=== PATIENT | female | born 1930 | race Caucasian/White ===

== ENCOUNTER 2019-06-01 20:09 | Inpatient (IN) | payer MEDICARE, MEDICAID ==
[~2019-06-01] VITALS: Ht 152.4 cm; Wt 71.4 kg
[2019-06-01] MEDS ORDERED: normal saline 1000ml 1,000 ML IV ONE ×2 (20:35→21:00)
[2019-06-01] MEDS ORDERED: pantoprazole 40 MG vial IV ONE (20:35)
[2019-06-01] MEDS ORDERED: ondansetron/PF 4mg/2ml inj IV ONE (20:40)
[2019-06-01 20:46] LABS: BASOPHILS # (AUTO) 0.1 X10'3 (0-0.2); BASOPHILS % (AUTO) 0.6 % (0-1); EOSINOPHILS # (AUTO) 0.5 X10'3 (0-0.9); EOSINOPHILS % (AUTO) 5.6 % (0-6); HEMATOCRIT 25.4 % (35.0-45.0); HEMOGLOBIN 8.6 g/dl (12.0-16.0); LYMPHOCYTES # (AUTO) 2.1 X10'3 (1.1-4.8); LYMPHOCYTES % (AUTO) 22.3 % (21-51); MEAN CORPUSCULAR HEMOGLOBIN 33.3 PG (27.0-31.0); MONOCYTES # (AUTO) 0.8 X10'3 (0-0.9); MONOCYTES % (AUTO) 8.2 % (2-12); NEUTROPHILS # (AUTO) 5.9 X10'3 (1.8-7.7); NEUTROPHILS % (AUTO) 63.3 % (42-75); PLATELET COUNT 155 X10'3 (140-440); RED BLOOD COUNT 2.59 X10'6 (4.20-5.60); RED CELL DISTRIBUTION WIDTH 16.6 % (11.5-14.5); WHITE BLOOD COUNT 9.4 X10'3 (4.5-11.0)
[2019-06-01 20:51] LABS: ALANINE AMINOTRANSFERASE 17 U/L (12-78); ALBUMIN 3.1 G/DL (3.4-5.0); ALBUMIN/GLOBULIN RATIO 0.9 (1.1-1.5); ALKALINE PHOSPHATASE 77 IU/L (46-116); ANION GAP 7 (8-16); ASPARTATE AMINO TRANSFERASE 18 U/L (10-37); BILIRUBIN,TOTAL 0.2 MG/DL (0.1-1.0); BLOOD UREA NITROGEN 107 MG/DL (7-18); BUN/CREATININE RATIO 40.2 (6.6-38.0); CALCIUM 8.7 MG/DL (8.5-10.1); CHLORIDE 104 MMOL/L (99-107); CREATININE 2.66 MG/DL (0.40-0.90); GLUCOSE 129 MG/DL (70-104); SODIUM 135 MMOL/L (135-145); TOTAL CARBON DIOXIDE 23.8 MMOL/L (24-32); TOTAL PROTEIN 6.7 G/DL (6.4-8.2); eGFR 17 ML/MIN
[2019-06-01 20:53] LABS: POTASSIUM 6.3 MMOL/L (3.5-5.1)
[2019-06-01 20:56] LABS: PARTIAL THROMBOPLASTIN TIME 24 SECONDS (22-32)
[2019-06-01] MEDS: pantoprazole 40MG/NS 100ML BAG 100 ML IV SCH ×2 (21:00→21:02)
[2019-06-01 21:05] LABS: LARGE PLATELETS MODERATE; PLATELET ESTIMATE NORMAL
[2019-06-01] MEDS ORDERED: calcium chloride inj. 1,000 MG in normal saline 100ml IV soln 90 ML IV ONE (21:05)
[2019-06-01 21:36] LABS: CLARITY,URINE CLEAR (Clear); COLOR,URINE YELLOW (Yellow); GLUCOSE, URINE NEGATIVE (Neg); KETONES,URINE NEGATIVE (Neg); LEUKOCYTE ESTERASE ,URINE SMALL (Neg); NITRITES, URINE NEGATIVE (Neg); OCCULT BLOOD,URINE NEGATIVE (Neg); PH,URINE 5.5 (4.8-8.0); PROTEIN,URINE NEGATIVE (Neg); UA COLLECTION TYPE CLN CATCH MIDSTREAM; UROBILINOGEN,URINE 0.2 E.U/dL (0.2-1.0)
[2019-06-01 21:47] LABS: RBC,URINE NONE SEEN /HPF (0-2); WBC,URINE 0-4 /HPF (0-4)
[2019-06-01 21:48] LABS: BACTERIA,URINE FEW /HPF (Neg); SQUAMOUS EPITHELIAL CELL,UR FEW /LPF (FEW); TRANSITIONAL EPI CELLS,URINE FEW /HPF
--- NOTE | 2019-06-01 21:53 | NUR ---
FAMILY AT BEDSIDE. PT ALERT AND ORIENTED AND COOPERATIVE WITH CARE. SECOND IV ESTABLISHED DUE TO PROTONIX AND CALCIUM NOT BEING COMPATABLE
[2019-06-01] MEDS ORDERED: ondansetron/PF 4mg/2ml inj IV PRN (23:30)
[2019-06-01] MEDS ORDERED: acetaminophen 325mg tablet PO PRN ×2 (23:30)
[2019-06-01] MEDS ORDERED: mag hydrox/Alum hydrox/simeth 30ml oral suspension PO PRN (23:30)
[2019-06-01] MEDS ORDERED: sodium polystyrene sulfonate 15gm/60ml oral suspension PO ONE (23:30)
[2019-06-01] MEDS ORDERED: HYDROcodone/acetaminophen 5mg/325mg tablet PO PRN (23:30)
[2019-06-01] MEDS ORDERED: magnesium hydroxide 30ml (MOM) UD suspension PO PRN (23:30)
[2019-06-02] VITALS (23 sets, daily range): BP systolic 102–198; BP diastolic 46–88
[2019-06-02] MEDS: normal saline 1000ml 1,000 ML IV SCH ×3 (00:19→15:53)
--- NOTE | 2019-06-02 00:21 | NUR ---
Recieved patient report from BOLIVAR Moeller. Patient arrived on unit at approximately 0015 via [facility]. Patient 2 RN skin check complete, medication hung per MD order. MRSA swab collected, vital signs taken patient is in stable condition.
[2019-06-02] MEDS: pantoprazole 40MG/NS 100ML BAG 100 ML IV SCH ×5 (01:36→21:49)
[2019-06-02 05:17] LABS: BASOPHILS % (AUTO) 0.7 % (0-1); EOSINOPHILS # (AUTO) 0.3 X10'3 (0-0.9); EOSINOPHILS % (AUTO) 4.5 % (0-6); LYMPHOCYTES # (AUTO) 1.7 X10'3 (1.1-4.8); LYMPHOCYTES % (AUTO) 25.3 % (21-51); MEAN CORPUSCULAR HGB CONC 33.6 g/dL (33.0-36.5); MEAN CORPUSCULAR VOLUME 98.2 FL (78-98); MEAN PLATELET VOLUME 11.1 FL (7.4-10.4); MONOCYTES # (AUTO) 0.6 X10'3 (0-0.9); MONOCYTES % (AUTO) 9.1 % (2-12); NEUTROPHILS # (AUTO) 3.9 X10'3 (1.8-7.7); NEUTROPHILS % (AUTO) 60.4 % (42-75); PLATELET COUNT 128 X10'3 (140-440); RED BLOOD COUNT 2.08 X10'6 (4.20-5.60); RED CELL DISTRIBUTION WIDTH 16.7 % (11.5-14.5); WHITE BLOOD COUNT 6.5 X10'3 (4.5-11.0)
[2019-06-02 05:28] LABS: HEMATOCRIT 20.5 % (35.0-45.0); HEMOGLOBIN 6.9 g/dl (12.0-16.0)
[2019-06-02 05:35] LABS: ALBUMIN 2.7 G/DL (3.4-5.0); ANION GAP 12 (8-16); BLOOD UREA NITROGEN 105 MG/DL (7-18); BUN/CREATININE RATIO 45.3 (6.6-38.0); CHLORIDE 113 MMOL/L (99-107); CREATININE 2.32 MG/DL (0.40-0.90); GLUCOSE 92 MG/DL (70-104); POTASSIUM 5.4 MMOL/L (3.5-5.1); SODIUM 146 MMOL/L (135-145); TOTAL CARBON DIOXIDE 21.2 MMOL/L (24-32); eGFR 20 ML/MIN
--- NOTE | 2019-06-02 05:58 | NUR ---
Patient has a critical value for Hgb= 6.9 and Hct= 20.5. Rishabh Fernandez MD called and he has ordered 1 unit of PRBC's.
--- NOTE | 2019-06-02 06:32 | NUR ---
Problems reprioritized. Patient report given, questions answered & plan of care reviewed with BOLIVAR Vance.
[2019-06-02 07:15] LABS: LARGE PLATELETS FEW; PLATELET ESTIMATE DECREASED
[2019-06-02] MEDS ORDERED: LISI40TA4 PO (07:38)
[2019-06-02] MEDS ORDERED: CARV25TA2 PO (07:38)
[2019-06-02] MEDS ORDERED: FURO40TA4 PO (07:38)
[2019-06-02] MEDS ORDERED: NIFE30TA95 PO (07:38)
[2019-06-02] MEDS ORDERED: FLU VACC QS2019-20 36MOS UP/PF 60 MCG/0.5 ML SYRINGE IMVAC ONE (10:00)
[2019-06-02 11:35] LABS: HEMATOCRIT 26.8 % (35.0-45.0); HEMOGLOBIN 9.1 g/dl (12.0-16.0); MEAN CORPUSCULAR HEMOGLOBIN 32.3 PG (27.0-31.0); MEAN CORPUSCULAR HGB CONC 33.9 g/dL (33.0-36.5); MEAN CORPUSCULAR VOLUME 95.2 FL (78-98); MEAN PLATELET VOLUME 10.9 FL (7.4-10.4); PLATELET COUNT 123 X10'3 (140-440); RED BLOOD COUNT 2.81 X10'6 (4.20-5.60); RED CELL DISTRIBUTION WIDTH 17.7 % (11.5-14.5); WHITE BLOOD COUNT 7.2 X10'3 (4.5-11.0)
--- NOTE | 2019-06-02 12:17 | NUR ---
Dr. Burr notified recent hemogram results. New order for hemogram q8 hours. PAGER ID: [phone] MESSAGE: [phone] [id number] Chana Jim: FYI- Hgb 9.1 Hct 26.8. Will repeat Q8 hours to monitor. Thanks, Pinky [id number]
[2019-06-02] MEDS ORDERED: fentaNYL/PF 50MCG/1 ML 2ML syringe ONE (14:23)
[2019-06-02] MEDS ORDERED: MIDAZolam 5mg/5ml vial ONE (14:23)
[2019-06-02] MEDS ORDERED: LIDOcaine Viscous 15ml cup ONE (14:24)
[2019-06-02] MEDS ORDERED: epiNEPHrine 0.1mg/ml 10ml syringe ONE (14:42)
--- NOTE | 2019-06-02 18:31 | NUR ---
Problems reprioritized. Patient report given, questions answered & plan of care reviewed with BOLIVAR Ruiz.
[2019-06-02] MEDS: carVEDilol 12.5mg tablet PO SCH (19:05)
[2019-06-02 19:28] LABS: HEMATOCRIT 24.1 % (35.0-45.0); HEMOGLOBIN 8.2 g/dl (12.0-16.0); MEAN CORPUSCULAR HEMOGLOBIN 32.5 PG (27.0-31.0); MEAN CORPUSCULAR HGB CONC 34.1 g/dL (33.0-36.5); MEAN CORPUSCULAR VOLUME 95.3 FL (78-98); MEAN PLATELET VOLUME 10.7 FL (7.4-10.4); PLATELET COUNT 111 X10'3 (140-440); RED BLOOD COUNT 2.53 X10'6 (4.20-5.60); RED CELL DISTRIBUTION WIDTH 18.2 % (11.5-14.5); WHITE BLOOD COUNT 7.6 X10'3 (4.5-11.0)
--- NOTE | 2019-06-02 23:00 | NUR ---
Sent to [facility]: MESSAGE: [id number] Chana Porter 89 F: Pt is on NS @ 100 NA increased from 135-146 Cl 104-113 Pressure before coreg was 177/72 BP after was 150/54. Would you like to decrease fluids? Thank you, Sara [phone]
--- NOTE | 2019-06-02 23:13 | NUR ---
Dr. Colbert DC'd fluid orders for this patient at this time.
--- NOTE | 2019-06-02 23:14 | NUR ---
Problems reprioritized. Patient report given, questions answered & plan of care reviewed with BOLIVAR Best.
--- NOTE | 2019-06-03 00:20 | NUR ---
Patient in room PCU 3024. I have received report from Sara LUTZ and had the opportunity to ask questions and assume patient care.
[2019-06-03] MEDS: pantoprazole 40MG/NS 100ML BAG 100 ML IV SCH ×5 (01:40→22:29)
[2019-06-03 02:00] VITALS: BP 144/53
[2019-06-03 03:29] LABS: ALBUMIN 2.5 G/DL (3.4-5.0); ANION GAP 9 (8-16); BASOPHILS % (AUTO) 0.5 % (0-1); BLOOD UREA NITROGEN 70 MG/DL (7-18); BUN/CREATININE RATIO 36.6 (6.6-38.0); CALCIUM 8.7 MG/DL (8.5-10.1); CHLORIDE 116 MMOL/L (99-107); CREATININE 1.91 MG/DL (0.40-0.90); EOSINOPHILS # (AUTO) 0.3 X10'3 (0-0.9); EOSINOPHILS % (AUTO) 4.8 % (0-6); GLUCOSE 81 MG/DL (70-104); HEMOGLOBIN 7.4 g/dl (12.0-16.0); LYMPHOCYTES # (AUTO) 1.5 X10'3 (1.1-4.8); LYMPHOCYTES % (AUTO) 23.8 % (21-51); MEAN CORPUSCULAR HEMOGLOBIN 32.5 PG (27.0-31.0); MEAN CORPUSCULAR HGB CONC 34.2 g/dL (33.0-36.5); MEAN CORPUSCULAR VOLUME 95.1 FL (78-98); MEAN PLATELET VOLUME 10.6 FL (7.4-10.4); MONOCYTES # (AUTO) 0.6 X10'3 (0-0.9); MONOCYTES % (AUTO) 10.2 % (2-12); NEUTROPHILS # (AUTO) 3.8 X10'3 (1.8-7.7); NEUTROPHILS % (AUTO) 60.7 % (42-75); PLATELET COUNT 107 X10'3 (140-440); POTASSIUM 4.2 MMOL/L (3.5-5.1); RED BLOOD COUNT 2.28 X10'6 (4.20-5.60); RED CELL DISTRIBUTION WIDTH 18.7 % (11.5-14.5); SODIUM 148 MMOL/L (135-145); WHITE BLOOD COUNT 6.3 X10'3 (4.5-11.0); eGFR 25 ML/MIN
[2019-06-03 03:32] LABS: HEMATOCRIT 21.7 % (35.0-45.0)
--- NOTE | 2019-06-03 03:35 | NUR ---
PAGER ID: [phone] MESSAGE: [id number] German Zayas: Critical hemoglobin and hematocrit: 7.4/21.7 Would you like to order anything?
--- NOTE | 2019-06-03 03:40 | NUR ---
JOHN CALL BACK Results are expected, next Hemogram draw is at 1100, Nurse to call MD to tell results.
[2019-06-03 04:22] LABS: ANISOCYTOSIS 2+; LARGE PLATELETS FEW; PLATELET ESTIMATE DECREASED
--- NOTE | 2019-06-03 05:47 | NUR ---
END NOC NOTE Patient slept comfortably. Protonix at 20 ml/hr is still on going. No bowel movements. Uses bedside commode. Very pleasant. Will continue to monitor.
--- NOTE | 2019-06-03 06:15 | NUR ---
Patient in room PCU 3024a. I have received report from BOLIVAR Figueroa and had the opportunity to ask questions and assume patient care.
--- NOTE | 2019-06-03 06:34 | NUR ---
Problems reprioritized. Patient report given, questions answered & plan of care reviewed with Pinky LUTZ.
[2019-06-03 06:56] VITALS: BP 162/55
[2019-06-03] MEDS: NIFEdipine XL 30mg tablet PO SCH (07:55)
[2019-06-03] MEDS: carVEDilol 12.5mg tablet PO SCH ×2 (07:55→20:41)
--- NOTE | 2019-06-03 09:07 | NUR ---
Dr. Burr at bedside, new order fot PT eval and treat and diet advance to full liquid.
[2019-06-03 11:00] VITALS: BP 117/45
[2019-06-03] MEDS ORDERED: FLU VACC QS2019-20 36MOS UP/PF 60 MCG/0.5 ML SYRINGE IMVAC ONE (11:00)
[2019-06-03 11:47] LABS: HEMATOCRIT 24.5 % (35.0-45.0); HEMOGLOBIN 8.2 g/dl (12.0-16.0); MEAN CORPUSCULAR HEMOGLOBIN 32.2 PG (27.0-31.0); MEAN CORPUSCULAR HGB CONC 33.5 g/dL (33.0-36.5); MEAN CORPUSCULAR VOLUME 95.9 FL (78-98); MEAN PLATELET VOLUME 10.9 FL (7.4-10.4); PLATELET COUNT 115 X10'3 (140-440); RED BLOOD COUNT 2.56 X10'6 (4.20-5.60); RED CELL DISTRIBUTION WIDTH 18.3 % (11.5-14.5); WHITE BLOOD COUNT 5.7 X10'3 (4.5-11.0)
[2019-06-03 15:00] VITALS: BP 128/53
--- NOTE | 2019-06-03 18:00 | NUR ---
Patient in room PCU 3024a. I have received report from BOLIVAR Vance and had the opportunity to ask questions and assume patient care.
--- NOTE | 2019-06-03 18:15 | NUR ---
Problems reprioritized. Patient report given, questions answered & plan of care reviewed with BOLIVAR Gay.
[2019-06-03 19:00] VITALS: BP 152/58
[2019-06-03 19:19] LABS: HEMATOCRIT 23.7 % (35.0-45.0); HEMOGLOBIN 7.9 g/dl (12.0-16.0); MEAN CORPUSCULAR HEMOGLOBIN 32.4 PG (27.0-31.0); MEAN CORPUSCULAR HGB CONC 33.3 g/dL (33.0-36.5); MEAN CORPUSCULAR VOLUME 97.2 FL (78-98); MEAN PLATELET VOLUME 10.8 FL (7.4-10.4); PLATELET COUNT 117 X10'3 (140-440); RED BLOOD COUNT 2.44 X10'6 (4.20-5.60); RED CELL DISTRIBUTION WIDTH 18.7 % (11.5-14.5)
--- NOTE | 2019-06-03 20:09 | NUR ---
PAGER ID: [phone] MESSAGE: [phone]. [phone], BOLIVAR Gay for patient in [id number]. Admit Dx GI bleed. 1900 H&H 7.9 & 23.7. Received 1 unit PRBCs 06/02. Thank you! Addendum: 06/03/19 at 2009 by Yoselin Oliveira RN Dr. Colbert notified and made aware. No new orders at this time. Will continue to monitor closely.
[2019-06-03 23:00] VITALS: BP 132/43
[2019-06-04] MEDS: pantoprazole 40MG/NS 100ML BAG 100 ML IV SCH ×3 (01:00→11:00)
[2019-06-04 03:00] VITALS: BP 156/53
[2019-06-04 06:00] VITALS: BP 114/60
--- NOTE | 2019-06-04 06:18 | NUR ---
Problems reprioritized. Patient report given, questions answered & plan of care reviewed with BOLIVAR Reina and Kendra, Student Nurse.
--- NOTE | 2019-06-04 06:21 | NUR ---
Patient in room PCU 3024. I have received report from BOLIVAR Gay and had the opportunity to ask questions and assume patient care.
[2019-06-04] MEDS: carVEDilol 12.5mg tablet PO SCH (07:19)
[2019-06-04] MEDS: NIFEdipine XL 30mg tablet PO SCH (07:19)
[2019-06-04 07:35] LABS: BASOPHILS % (AUTO) 0.7 % (0-1); EOSINOPHILS # (AUTO) 0.4 X10'3 (0-0.9); EOSINOPHILS % (AUTO) 6.7 % (0-6); HEMATOCRIT 24.6 % (35.0-45.0); HEMOGLOBIN 8.3 g/dl (12.0-16.0); LYMPHOCYTES # (AUTO) 1.3 X10'3 (1.1-4.8); LYMPHOCYTES % (AUTO) 21.7 % (21-51); MEAN CORPUSCULAR HEMOGLOBIN 32.3 PG (27.0-31.0); MEAN CORPUSCULAR HGB CONC 33.9 g/dL (33.0-36.5); MEAN CORPUSCULAR VOLUME 95.2 FL (78-98); MEAN PLATELET VOLUME 10.1 FL (7.4-10.4); MONOCYTES # (AUTO) 0.7 X10'3 (0-0.9); MONOCYTES % (AUTO) 10.8 % (2-12); NEUTROPHILS # (AUTO) 3.6 X10'3 (1.8-7.7); NEUTROPHILS % (AUTO) 60.1 % (42-75); PLATELET COUNT 120 X10'3 (140-440); RED BLOOD COUNT 2.58 X10'6 (4.20-5.60); RED CELL DISTRIBUTION WIDTH 18.2 % (11.5-14.5)
[2019-06-04 07:38] LABS: ALBUMIN 2.8 G/DL (3.4-5.0); ANION GAP 8 (8-16); BLOOD UREA NITROGEN 41 MG/DL (7-18); BUN/CREATININE RATIO 25.9 (6.6-38.0); CALCIUM 9.2 MG/DL (8.5-10.1); CHLORIDE 116 MMOL/L (99-107); CREATININE 1.58 MG/DL (0.40-0.90); GLUCOSE 91 MG/DL (70-104); POTASSIUM 4.2 MMOL/L (3.5-5.1); SODIUM 147 MMOL/L (135-145); eGFR 31 ML/MIN
[2019-06-04] MEDS ORDERED: PANT-47 PO (09:15)
--- NOTE | 2019-06-04 09:33 | NUR ---
PAGER ID: [phone] MESSAGE: [id number] Chana Porter: Had two concerns about DC'ing. 1: Only being on liquids and not being introduced back to solid foods. 2: She wants a nutrition consult. BOLIVAR Reina Ext [phone]
--- NOTE | 2019-06-04 09:34 | NUR ---
Patient has concerns regarding DC see pager note below.
[2019-06-04 10:58] LABS: HEMATOCRIT 24.6 % (35.0-45.0); HEMOGLOBIN 8.1 g/dl (12.0-16.0); MEAN CORPUSCULAR HEMOGLOBIN 32.2 PG (27.0-31.0); MEAN CORPUSCULAR HGB CONC 33.1 g/dL (33.0-36.5); MEAN CORPUSCULAR VOLUME 97.5 FL (78-98); PLATELET COUNT 121 X10'3 (140-440); RED BLOOD COUNT 2.52 X10'6 (4.20-5.60); RED CELL DISTRIBUTION WIDTH 18.2 % (11.5-14.5); WHITE BLOOD COUNT 5.3 X10'3 (4.5-11.0)
[2019-06-04 11:00] VITALS: BP 145/54
--- NOTE | 2019-06-04 12:58 | NUR ---
Discharged at 1140. PIV's taken out by student and tele was returned. Meds were called into [facility] on [facility]. Patient educated on meds, follow-up and GIB. [employer]er came into educate patient on diet for post GIB. Wrist band cut and blood band cut. Signed medicare DC and DC papers. Stable for DC per MD. Will ride home with family.
== END 2019-06-04 11:40 | disposition home or self-care (01) | DRG 377 ==
LOC: ER 20:10 → ED HOLD 23:46 → PCU 3S 23:54
PROVIDERS: ADMIT Hospitalist; ATTEND Internal Medicine
PROC: 30233N1 Transfusion of Nonautologous Red Blood Cells into Peripheral Vein, Percutaneous Approach (ICD-10-PCS; 2019-06-02)
PROC: 0DB68ZX Excision of Stomach, Via Natural or Artificial Opening Endoscopic, Diagnostic (ICD-10-PCS; 2019-06-02)
PROC: 0W3P8ZZ Control Bleeding in Gastrointestinal Tract, Via Natural or Artificial Opening Endoscopic (ICD-10-PCS; 2019-06-02)
PROC: 3E02340 Introduction of Influenza Vaccine into Muscle, Percutaneous Approach (ICD-10-PCS; principal; 2019-06-03)
DX: K25.4 Chronic or unspecified gastric ulcer with hemorrhage (principal); N17.0 Acute kidney failure with tubular necrosis; D62 Acute posthemorrhagic anemia; E87.5 Hyperkalemia; I12.9 Hypertensive chronic kidney disease with stage 1 through stage 4 chronic kidney disease, or unspecified chronic kidney disease; K22.2 Esophageal obstruction; K29.60 Other gastritis without bleeding; K44.9 Diaphragmatic hernia without obstruction or gangrene; N18.3 Chronic kidney disease, stage 3 (moderate); Z96.653 Presence of artificial knee joint, bilateral; M19.90 Unspecified osteoarthritis, unspecified site; Z23 Encounter for immunization; Z79.899 Other long term (current) drug therapy; Z95.0 Presence of cardiac pacemaker
CPT/HCPCS: 36415; 36430; 43227; 43239; 43243; 71045; 80048; 80053; 81001; 85025; 85027; 85610; 85730; 86885; 86900; 86901; 86920; 87081; 87088; 88305; 88342; 93005; 96361; 96374; 96375; 97116; 97161; 97530; 99152; 99285; A4620; C9113; G0378; J0171; J2250; J2405; J3010; J7030; J7040; P9016; Q2037

== ENCOUNTER 2020-09-22 09:13 | Emergency (ER) | payer MEDICARE, MEDICAID ==
[~2020-09-22] VITALS: Ht 157.5 cm; Wt 74.3 kg
[~2020-09-22 09:13] MED LIST: CARV25TA2 PO; FURO40TA4 PO; LISI40TA4 PO; NIFE30TA95 PO; PANT-47 PO
--- NOTE | 2020-09-22 09:29 | NUR ---
PT HAD CHEST XRAY AT [facility] 09/20/20
[2020-09-22] MEDS ORDERED: HYDROcodone/acetaminophen 5mg/325mg tablet PO ONE (10:20)
[2020-09-22] MEDS ORDERED: ondansetron 4mg rapidly disintigrating tab PO ONE (10:20)
[2020-09-22 11:27] VITALS: BP 166/58
[2020-09-22] MEDS ORDERED: HYDR-3965 PO (11:46)
== END 2020-09-22 12:27 | disposition home or self-care (01) ==
LOC: ER 09:13
DX: R07.81 Pleurodynia (principal); I10 Essential (primary) hypertension; Z95.0 Presence of cardiac pacemaker; Z88.2 Allergy status to sulfonamides; Z79.899 Other long term (current) drug therapy
CPT/HCPCS: 71101; 99283

== ENCOUNTER 2021-09-13 10:55 | Emergency (ER) | payer MEDICARE, MEDICAID ==
[~2021-09-13] VITALS: Ht 149.9 cm; Wt 60.2 kg
[~2021-09-13 10:55] MED LIST changes: +ACET-1008 PO; +ASCO120C2; -FURO40TA4 PO; +LISI40TA13 PO; -LISI40TA4 PO; +MELA5TAB12 PO; +MULT-1085 PO; -NIFE30TA95 PO; -PANT-47 PO; +PSYL0.5210 PO; +RIVA15TA PO
[2021-09-13 11:04] VITALS: BP 230/85
[2021-09-13] MEDS ORDERED: ondansetron/PF 4mg/2ml inj IV ONE (11:10)
[2021-09-13] MEDS ORDERED: normal saline 1000ML IV soln IVB ONE (11:10)
[2021-09-13 11:48] LABS: BASOPHILS % (AUTO) 0.3 % (0-1); EOSINOPHILS % (AUTO) 0 % (0-6); HEMOGLOBIN 12.1 g/dl (12.0-16.0); LYMPHOCYTES # (AUTO) 0.4 X10'3 (1.1-4.8); LYMPHOCYTES % (AUTO) 4.5 % (21-51); MEAN CORPUSCULAR HEMOGLOBIN 34.4 PG (27.0-31.0); MEAN CORPUSCULAR HGB CONC 33.5 g/dL (33.0-36.5); MEAN CORPUSCULAR VOLUME 102.7 FL (78-98); MEAN PLATELET VOLUME 10.5 FL (7.4-10.4); MONOCYTES # (AUTO) 0.6 X10'3 (0-0.9); MONOCYTES % (AUTO) 6.1 % (2-12); NEUTROPHILS # (AUTO) 8.1 X10'3 (1.8-7.7); NEUTROPHILS % (AUTO) 89.1 % (42-75); PLATELET COUNT 232 X10'3 (140-440); RED BLOOD COUNT 3.51 X10'6 (4.20-5.60); RED CELL DISTRIBUTION WIDTH 14.6 % (11.5-14.5); WHITE BLOOD COUNT 9.1 X10'3 (4.5-11.0)
[2021-09-13 12:05] LABS: ALANINE AMINOTRANSFERASE 22 U/L (12-78); ALBUMIN 4.2 G/DL (3.4-5.0); ALBUMIN/GLOBULIN RATIO 1.1 (1.1-1.5); ALKALINE PHOSPHATASE 90 IU/L (46-116); ANION GAP 14 (8-16); ASPARTATE AMINO TRANSFERASE 23 U/L (10-37); BILIRUBIN,TOTAL 0.4 MG/DL (0.1-1.0); BLOOD UREA NITROGEN 59 MG/DL (7-18); CALCIUM 10.1 MG/DL (8.5-10.1); CHLORIDE 102 MMOL/L (99-107); CREATININE 1.64 MG/DL (0.40-0.90); GLUCOSE 141 MG/DL (70-104); POTASSIUM 4.2 MMOL/L (3.5-5.1); SODIUM 138 MMOL/L (135-145); TOTAL CARBON DIOXIDE 21.8 MMOL/L (24-32); TOTAL PROTEIN 8.2 G/DL (6.4-8.2); eGFR 29 ML/MIN
[2021-09-13 12:18] LABS: PLATELET ESTIMATE NORMAL; SCHISTOCYTES FEW
[2021-09-13 12:19] LABS: BURR CELLS FEW; LARGE PLATELETS FEW; TARGET CELLS 1+
[2021-09-13] MEDS ORDERED: metoclopramide 5 mg/ml inj IV ONE (13:50)
[2021-09-13] MEDS ORDERED: ONDA4TAB12 PO (15:09)
[2021-09-13 15:48] LABS: CLARITY,URINE CLEAR (Clear); COLOR,URINE YELLOW (Yellow); GLUCOSE, URINE NEGATIVE (Neg); KETONES,URINE NEGATIVE (Neg); LEUKOCYTE ESTERASE ,URINE NEGATIVE (Neg); NITRITES, URINE NEGATIVE (Neg); OCCULT BLOOD,URINE SMALL (Neg); PH,URINE 5.5 (4.8-8.0); PROTEIN,URINE 100 mg/dl (Neg); UROBILINOGEN,URINE 0.2 E.U/dL (0.2-1.0)
[2021-09-13 15:49] LABS: UA COLLECTION TYPE NON-SPECIFIED
[2021-09-13 16:01] LABS: BACTERIA,URINE 1+ /HPF (Neg); HYALINE CASTS 0-3 /LPF (NEGATIVE); MUCUS STRANDS FEW /LPF (Neg); RBC,URINE 0-2 /HPF (0-2); SQUAMOUS EPITHELIAL CELL,UR FEW /LPF (FEW); WBC,URINE 0-4 /HPF (0-4)
== END 2021-09-13 15:30 | disposition home or self-care (01) ==
LOC: ER 10:55
DX: A08.4 Viral intestinal infection, unspecified (principal); Z20.822 Contact with and (suspected) exposure to COVID-19; R11.2 Nausea with vomiting, unspecified; R10.84 Generalized abdominal pain; R05.9 Cough, unspecified; I50.9 Heart failure, unspecified; I11.0 Hypertensive heart disease with heart failure; Z95.0 Presence of cardiac pacemaker; Z98.890 Other specified postprocedural states; Z88.2 Allergy status to sulfonamides; Z79.899 Other long term (current) drug therapy
CPT/HCPCS: 36415; 71045; 80053; 81001; 85008; 85025; 87635; 93005; 96374; 96375; 99285; C9803; J2405; J2765; J7030